=== PATIENT | female | born 1975 | race Caucasian/White ===

== ENCOUNTER 2019-07-26 10:25 | Outpatient (CLI) | payer BC, OTHER ==
--- NOTE | 2019-07-26 11:20 | MRI ---
MRI of cervical spine: 07/26/2019 COMPARISON: None HISTORY: Cervical radiculopathy TECHNIQUE: Multiplanar multisequence MR imaging of the cervical spine provided without contrast FINDINGS: Sagittal STIR imaging demonstrates no focal area of osseous marrow edema. No anterolisthesi s or retrolisthesis is evident within the cervical spine. No prevertebral soft tissue abnormality. C2-3: No central canal or neural foraminal stenosis. C3-4: Facet and uncovertebral osteophyte formation on the right causes moderate right neural foramina l stenosis. No significant central canal or left neural foraminal stenosis. C4-5: There is a small central disc protrusion partially effacing the ventral thecal sac. No signific ant associated central canal stenosis. Mild bilateral facet and uncovertebral osteophyte formation with mild bilateral neural foraminal stenosis. C5-6: There is disc space narrowing and disc desiccation with a small central/right paracentral disc protrusion partially effacing the ventral thecal sac. No central canal stenosis. Mild bilateral neural foraminal stenosis on the basis of mild bilateral facet and uncovertebral osteophyte formation . C6-7: There is a central annular tear. There is an associated disc extrusion in the central/right par acentral region with inferior migration causing significant right-sided central canal stenosis laterally. This is best seen on axial T2 image 28. Extruded disc material measures 8 x 4 mm in AP and transverse dimension and approximately 10 mm in craniocaudal dimension. It almost extends to the axial level of the C7-T1 intervertebral disc. C7-T1: Mild bilateral facet and uncovertebral osteophyte formation. No significant central canal or n eural foraminal stenosis. No focal area of abnormal signal intensity is identified within the cervical cord. IMPRESSION: There is a central annular tear at C6-7 with an associated central/right paracentral disc extrusion with inferior migration, leading to lateral right-sided central canal stenosis.
== END 2019-07-26 10:26 | disposition home or self-care (01) ==
LOC: TBSIIMAG 10:25
PROVIDERS: ATTEND Family Medicine
DX: M50.123 Cervical disc disorder at C6-C7 level with radiculopathy (principal); M48.02 Spinal stenosis, cervical region
CPT/HCPCS: 72141

== ENCOUNTER 2021-03-12 12:18 | Outpatient (CLI) | payer BC | END 2021-03-12 12:19 | disposition home or self-care (01) | LOC: BICRAD 12:18 | PROVIDERS: ATTEND Family Medicine | DX: M79.671 Pain in right foot (principal) ==

== ENCOUNTER 2021-04-15 19:33 | Emergency (ER) | payer BC ==
[2021-04-15] MEDS ORDERED: HYDROcodone/Acetaminophen 10/325 mg Tablet ONE (20:03)
== END 2021-04-15 21:29 | disposition home or self-care (01) ==
LOC: ERS 19:33
DX: S92.351A Displaced fracture of fifth metatarsal bone, right foot, initial encounter for closed fracture (principal); I10 Essential (primary) hypertension; F17.210 Nicotine dependence, cigarettes, uncomplicated; Z79.899 Other long term (current) drug therapy; W18.30XA Fall on same level, unspecified, initial encounter
CPT/HCPCS: 29515

== ENCOUNTER 2021-06-28 12:08 | Outpatient (CLI) | payer BC ==
[2021-06-29 00:59] LABS: SARS-CoV-2 PCR by NAA Not Detected (NotDetected)
== END 2021-06-28 12:09 | disposition home or self-care (01) ==
LOC: LABBT 12:08
PROVIDERS: ATTEND Orthopaedic Surgery
DX: Z01.812 Encounter for preprocedural laboratory examination (principal); S92.354A Nondisplaced fracture of fifth metatarsal bone, right foot, initial encounter for closed fracture; Z20.822 Contact with and (suspected) exposure to COVID-19
CPT/HCPCS: U0003; U0005

== ENCOUNTER 2022-10-20 05:47 | Day surgery (SDC) | payer OTHER ==
[2022-10-18 15:56] VITALS: BMI 29.0
[2022-10-20] MEDS ORDERED: Bupivacaine HCl 0.5%/Epinephrine 1:200,000/PF 30 ml Vial ONE (06:25)
[2022-10-20] MEDS ORDERED: Thrombin 5000 UNITS/5 ML VIAL ONE (06:25)
[2022-10-20] MEDS ORDERED: Fentanyl 250 MCG/5 ML VIAL ONE (06:35)
[2022-10-20] MEDS ORDERED: Dexmedetomidine 200 MCG/2 ML VIAL ONE (06:35)
[2022-10-20] MEDS ORDERED: Sodium Chloride 0.9% 100 ML ONE ×2 (06:53→10:59)
[2022-10-20] MEDS ORDERED: CEFAZOLIN 2 GM VIAL ONE ×2 (06:53→10:59)
[2022-10-20] MEDS ORDERED: SUGAMMADEX SODIUM 200 MG/2 ML VIAL ONE (08:22)
[2022-10-20] MEDS ORDERED: Fentanyl 100 MCG/2 ML VIAL ONE ×3 (08:47→10:10)
== END 2022-10-20 11:45 | disposition home or self-care (01) ==
LOC: SDC 05:47
PROVIDERS: ATTEND Neurological Surgery
PROC: 0RG20A0 Fusion of 2 or more Cervical Vertebral Joints with Interbody Fusion Device, Anterior Approach, Anterior Column, Open Approach (ICD-10-PCS; principal; 2022-10-20)
DX: M50.123 Cervical disc disorder at C6-C7 level with radiculopathy (principal); M48.02 Spinal stenosis, cervical region; G89.4 Chronic pain syndrome; I10 Essential (primary) hypertension; F17.200 Nicotine dependence, unspecified, uncomplicated; Z79.899 Other long term (current) drug therapy
CPT/HCPCS: C1713; C1889; J3010; J3490

== ENCOUNTER 2025-07-07 14:31 | Outpatient (CLI) | payer OTHER | END 2025-07-07 14:32 | disposition home or self-care (01) | LOC: BICRAD 14:31 | PROVIDERS: ATTEND Family Medicine | DX: M25.532 Pain in left wrist (principal) | CPT/HCPCS: 36415; 80053; 80061; 83036; 84443; 85025 ==